=== PATIENT | male | born 1985 | race Caucasian/White ===

== ENCOUNTER 2024-01-28 15:49 | Emergency (ER) | payer OTHER, SELFPAY ==
--- NOTE | 2024-01-28 15:53 | ED.SKABFB ---
HPI - Skin/Abscess/Foreign Bdy General Chief complaint: Skin/Abscess/Foreign Body Stated complaint: Rash Right Arm Time Seen by Provider: 01/28/24 15:53 Source: patient Mode of arrival: ambulatory Limitations: no limitations History of Present Illness HPI narrative: Martínez is a 38 year old male patient presenting to the clinic today with c/o a worsening rash after contact with poison kenny while doing yard work. He notes an itchy rash scattered on bilateral upper and lower extremities. He has been using OTC calamine lotion, however, he reports that the rash on his right AC has gotten worse, although it is less itchy than other locations. He denies any headache, swelling, shortness of breath, congestion, cough, fevers/chills, or chest pain Related Data Allergies Allergy/AdvReac Type Severity Reaction Status Date / Time No Known Allergies Allergy Verified 01/28/24 15:59 Review of Systems Review of Systems: Pertinent positives per HPI. Patient denies any fever, chills, headache, visual changes, dizziness, cough, runny nose, sore throat, shortness of breath, chest pain, palpitations, nausea, vomiting, diarrhea, constipation, abdominal pain, or any urinary issues. PMFSH Comments At the time of my signature, I reviewed and agree with the nursing past medical, surgical, social, and family history. There is no relevant family history pertinent to the patient complaint. Exam Narrative: General: Well-developed, well nourished, in no apparent distress Head: Normocephalic, atraumatic. Integumentary: Scattered erythematous, raised, blistered rashes on BUE/BLE, circular rash with an erythematous border to the proximal and distal aspect of the right antecubital fossa Course Course Emergency Course: Portions of this record may have been created with voice recognition software. Level of Care: Express Care Visit Vital Signs Vital signs: Vital Signs Temperature 37.2 C 01/28/24 16:03 Pulse Rate 53 L 01/28/24 16:03 Respiratory Rate 16 01/28/24 16:03 Blood Pressure 146/93 H 01/28/24 16:03 Pulse Oximetry 98 01/28/24 16:03 Oxygen Delivery Room Air 01/28/24 16:03 Temperature 37.2 C 01/28/24 16:03 Pulse Rate 53 L 01/28/24 16:03 Respiratory Rate 16 01/28/24 16:03 Blood Pressure 146/93 H 01/28/24 16:03 Pulse Oximetry 98 01/28/24 16:03 Oxygen Delivery Room Air 01/28/24 16:03 Vital signs reviewed MDM - Skin/Abscess/Foreign Bdy MDM Narrative Medical decision making narrative: At the time of visit patient is resting comfortably on the exam table. Patient appears to be nontoxic. Plan: I suspect patient has poison kenny dermatitis. Prescription for 10 day course of prednisone and triamcinolone cream was sent to pharmacy. Supportive measures were discussed with the patient and they voiced understanding discharge instructions and agrees to treatment plan. Return precautions reviewed Differential Diagnosis Differential diagnosis: Likely abscess of skin or subcutaneous tissue, urticaria, herpes zoster, cellulitis, eczema, insect bites, impetigo and contact dermatitis Discharge Plan Discharge Clinical Impression: Allergic contact dermatitis due to plant Patient Disposition: Home, Self-Care Condition: Stable Instructions: Antibiotic Form, Contact Dermatitis (ED) Additional Instructions: Apply triamcinolone cream as directed Take prednisone as directed Avoid hot showers Avoid scratching as this can cause a secondary infection May take benadryl 25-50mg every 6 hours as needed for itching. Follow up with your PCP in 3-5 days if symptoms persist or sooner if they worsen Go to the Emergency Room if symptoms worsen- fever, rash spreading with treatment, shortness of breath, tongue swelling, drooling, or chest pain Prescriptions: New prednisone 20 mg tablet 40 mg PO DAILY 5 Days Qty: 10 0RF prednisone 10 mg tablet 10 mg PO DAILY Qty: 30 0RF Rx Instructions:
[2024-01-28 16:03] VITALS: BP 146/93; PULSE 53; RESP 16; TEMP 37.2; O2SAT 98
== END 2024-01-28 16:18 | disposition home or self-care (01) ==
PROVIDERS: Emergency Provider Nurse Practitioner Family
DX: L23.7 Allergic contact dermatitis due to plants, except food (principal)
CPT/HCPCS: 99203; G0463